=== PATIENT | female | born 1990 | race Caucasian/White ===

== ENCOUNTER 2024-12-11 17:07 | Emergency (ER) | payer OTHER ==
[2024-12-11 17:17] VITALS: RESP 18
--- NOTE | 2024-12-11 18:09 | ED ---
General Adult HPI - General Source: patient, RN notes reviewed Mode of arrival: ambulatory Limitations: no limitations <NarayanalizaslyPalmira - Last Filed: 12/11/24 18:08> <Nancy Sargent - Last Filed: 12/15/24 09:24> - General Chief complaint: Dizziness Stated complaint: Hypertension-10 weeks preg - History of Present Illness Initial comments: 34-year-old female presents to the emergency department for elevated blood pressure readings, lightheadedness. Patient states that symptoms started today. She notes that she is 10 weeks . She called her METAL WEIGHER because she had elevated blood pressures and was told to come to the emergency department. She denies any history of hypertension but does report history of with her prior . (Palmira Emmanuel) Patient is a previously health 34 y/o female, , Currently 10 weeks , presenting today for HTN. Patient states that she feels like her blood pressure has been fluctuating all day. Has noticed dizziness worsening throughout the day, especially prominent when she was up cleaning this afternoon. She laid down and took her blood pressure and noted her systolic BP to be in the 160s. She called her OB's office and the OB nurse directed her to come to the ED. Patient is not currently on antihypertensives. She states that she was never diagnosed with pre-eclampsia however was admitted to the hospital to deliver her last baby one month early due to high blood pressure. She describes her dizziness as lightheadedness. Symptoms have improved while awaiting assessment in the ED. Endorses mild right sided PEÑALOZA that was not sudden in onset nor described as the worst headache of her life. Denies sudden changes in vision, focal numbness or weakness, slurred speech or additional stroke like symptoms. Denies chest pain or shortness of breath or LE swelling. Denies abdominal pain, dysuria, hematuria, vaginal bleeding, discharge or fevers. States she has suffered from morning sickness throughout much of her so far. Had her 8 week intake appointment with her OB approx 1 week ago and was noted to have high BP at that time. Pt states at that time her OB's office planned to continue to monitor her BP. (Nancy Sargent) - Related Data Allergies Allergy/AdvReac Type Severity Reaction Status Date / Time No Known Allergies Allergy Verified 12/11/24 17:16 Review of Systems ROS Other: All systems not noted in ROS Statement are negative. <Palmira Emmanuel - Last Filed: 12/11/24 18:08> ROS Other: All systems not noted in ROS Statement are negative. <Nancy Sargent - Last Filed: 12/15/24 09:24> ROS Statement: Those systems with pertinent positive or pertinent negative responses have been documented in the HPI. Past Medical History Past Medical History: No Reported History History of Any Multi-Drug Resistant Organisms: None Reported Additional Past Surgical History / Comment(s): ovarian torsion Past Psychological History: No Psychological Hx Reported Smoking Status: Never smoker Past Alcohol Use History: None Reported Past Drug Use History: None Reported <Palmira Emmanuel - Last Filed: 12/11/24 18:08> General Exam Limitations: no limitations <Palmira Emmanuel - Last Filed: 12/11/24 18:08> <Nancy Sargent - Last Filed: 12/15/24 09:24> - General Exam Comments Initial Comments: Visual Physical Exam Vital signs reviewed General: Well-appearing, nontoxic, no acute distress. Head: Normocephalic, atraumatic Eyes: PERRLA, EOMI ENT: Airway patent Chest: Nonlabored breathing Skin: No visual rash, normal skin tone Neuro: Alert and oriented 3 Musculoskeletal: No gross abnormalities (Palmira Emmanuel) PE: CONSTITUTIONAL: No apparent distress, well appearing SKIN: Warm, dry, no jaundice, hives or petechiae EYES: Pupils are equally round, extraocular movements intact without nystagmus, clear conjunctiva, non-icteric sclera HENT: Normocephalic, atraumatic, moist mucus membranes, oropharynx clear without exudates, tympanic membrane's pearly balbuena NECK: , Full range of motion, normal appearance PULMONARY: Clear to auscultation without wheezes, rhonchi, or rales, normal excursion, no accessory muscle use and no stridor CARDIOVASCULAR: Regular rate, rhythm, normal S1 and S2. No appreciated murmurs, rubs or gallops. Strong radial pulses with intact distal perfusion. No lower extremity edema GASTROINTESTINAL: Soft, active bowel sounds throughout, non-tender, non- distended, no palpable masses, no rebound or guarding. No hepatosplenomegaly MUSCULOSKELETAL: Extremities have no gross deformity, no edema, redness, or swelling. No calf swelling NEUROLOGIC:_a/o x 3, GCS 15, normal mentation and speech. Moves all extremities x 4 without motor or sensory deficit, cranial nerves: II (visual davey without defects), III, IV and (extraocular movements are intact, pupils are equal with normal reaction to light), V (intact facial sensation and jaw opening), VII (no facial droop), IX and X (normal palate movement, midline uvula, normal voice), XI (symmetrical shoulder shrug and lateral head rotation against resistance), XII (midline tongue protrusion). Motor strength is 5/5 in all extremities. No abnormal movements. Normal muscle tone. Sensation to light touch is intact bilaterally. No cerebellar signs ([id number], [id number], and rapid alternating movements are normal) PSYCHIATRIC:_normal mood and affect, thought process is clear and linear (Nancy Sargent) Course Vital Signs 12/11/24 12/11/24 12/12/24 17:12 22:16 00:00 Temperature 97.8 F 97.9 F Pulse Rate 88 100 94 Respiratory 18 18 18 Rate Blood Pressure 186/100 139/86 136/90 O2 Sat by Pulse 100 98 98 Oximetry 12/12/24 01:46 Temperature Pulse Rate 84 Respiratory 18 Rate Blood Pressure 128/81 O2 Sat by Pulse 99 Oximetry EKG Findings - EKG Comments: EKG Findings:: Sinus rhythm, rate 85 bpm, AK interval 157 ms QT/QTc 363/4 5 ms, normal axis, no ST elevations or depressions, no ischemic changes, no arrhythmia <Nancy Sargent - Last Filed: 12/15/24 09:24> Medical Decision Making <Palmira Emmanuel - Last Filed: 12/11/24 18:08> - Lab Data Result diagrams: 12/11/24 19:28 12/11/24 19:28 <Nancy Sargent - Last Filed: 12/15/24 09:24> - Medical Decision Making Quick note performed and electronically signed by Palmira Emmanuel PA-C (Palmira Emmanuel) Was pt. sent in by a medical professional or institution ([facility] Dominguez, CRYPTOGRAPHER, urgent care, hospital, or [place] health care facility...) When possible be specific @ -Patient was sent in by her OB nurse Did you speak to anyone other than the patient for history (EMS, parent, family, police, friend...)? What history was obtained from this source @ -No Did you review nursing and triage notes (agree or disagree)? Why? @ -I reviewed nursing and triage notes-reviewed quick note, patient here for lightheadedness and high blood pressure Were old charts reviewed (outside hosp., previous admission, EMS record, old EKG, old radiological studies, urgent care reports/EKG's, [place] health care facility records)? Report findings @ -Medical records reviewed no prior records available for review Differential Diagnosis (chest pain, altered mental status, abdominal pain women, abdominal pain men, vaginal bleeding, weakness, fever, dyspnea, syncope, headache, dizziness, GI bleed, back pain, seizure, CVA, palpatations, mental health, musculoskeletal)? Differential Dizziness: Benign paroxysmal positional Vertigo, Meniere's disease, otitis media, acoustic neuroma, vertebrobasilar insufficiency, cerebellar stroke, encephalitis, hypovolemic, electrolyte abnormality, arrhythmia, gestational hypertension, anemia, this is not meant to be an all-inclusive list Based on history and physical exam, I do not feel further evaluation for cerebe llar stroke is warranted at this time, patient has no focal neurologic deficits, dizziness is described as more of a positional lightheadedness as opposed to vertiginous EKG interpreted by me (3pts min.). @ -As above X-rays interpreted by me (1pt min.). @ -None done CT interpreted by me (1pt min.). @ -None done U/S interpreted by me (1pt. min.). @ -None done What testing was considered but not performed or refused? (CT, X-rays, U/S, labs)? Why? @Due to patient's high blood pressure on arrival, chest x-ray was considered to evaluate for signs of cardiomegaly or pleural effusions however patient has reassuring cardiac exam, chest pain or shortness of breath, at this point I feel risk of radiation exposure to mother and fetus outweighs benefit What meds were considered but not given or refused? Why? @800 was considered however patient's blood pressure improved with treatment of her headache Did you discuss the management of the patient with other professionals (professionals i.e. , PA, CRYPTOGRAPHER, lab, RT, psych nurse, social worker masters, chain hoist operator, teacher, state wildlife officer, clinical case manager)? Give summary @Case was discussed with obstetrics and gynecology, Dr. Henderson, who kindly recommended patient maintain BP log and follow up in 1 week in her office Was smoking cessation discussed for >3mins.? @ -No Was critical care preformed (if so, how long)? @ -No Were there social determinants of health that impacted care today? How? (Homelessness, low income, unemployed, alcoholism, drug addiction, transportation, low edu. Level, literacy, decrease access to med. care, assisted, rehab)? @ -No Was there de-escalation of care discussed even if they declined (Discuss DNR or withdrawal of care, Hospice)? @ -No What co-morbidities impacted this encounter? (DM, HTN, Smoking, COPD, CAD, Cancer, CVA, ARF, Chemo, Hep., AIDS, mental health diagnosis, sleep apnea, morbid obesity)? @ -None Was patient admitted / discharged? Hospital course, mention meds given and route, prescriptions, significant lab abnormalities, going to OR and other pertinent info. @ Discharged- Patient is a 34 y/o female , presenting for lightheadedness and HTN. BP on arrival 186/100. Patient was initially seen and assessed by triage provider with prelimnary labs ordered by triage provider. On my assessment patient is resting comfortably in hallway bed. Obtained pt's permission to discuss case/ perform care in hallway. Pt has no focal deficits on exam. I personally rechecked pt's BP and on rechecked was 145/92 without intervention. Discussed with patient obtaining basic labs, administering tylenol, reglan, beneadryl for PEÑALOZA and dizziness and obtaining US. Pt agreeable with POC. On RN recheck approx 20 minutes after my assessment, BP decreased to 136/90. Labs and imaging reviewed. Grossly within normal limits. Abnormal values not concerning for acute pathology related to presenting complaint. ultrasound showsSingle live intrauterine fetus measuring 10 weeks gestation with heart rate 180 bpm. On reassessment patient endorses improvement of headache. Case was discussed with patient's die presser, Dr. Pickett , recs as above. Discussed with pt lab/US results, OB recs and how to monitor her blood pressure at home, include appropriate positioning, timing, and recording measurements once daily. Discussed with patient signs of hypertensive emergency and additional signs and symptoms to monitor for warranting return to the ED. All questions were answered and pt was comfortable with plan for dis charge at this point. In my medical judgment there is currently no evidence of an immediate life-t hreatening or surgical condition. Discharge is therefore indicated at this time. Discharge treatment instructions, follow up instructions, and appropriate emergency department return precautions were discussed with the patient and/or medical decision maker. Patient and/or medical decision maker expressed understanding of and agreed with the treatment plan, follow up instructions, and emergency department return precaution. All patient's and/or medical decision maker's questions were answered. The patient was advised that a small risk still exists that a serious condition could develop and was therefore instructed to return to the ED for any changes in symptoms, persistent symptoms, inability to obtain proper follow-up or for any further concerns. Patient received verbal and written instructions for this condition. Undiagnosed new problem with uncertain prognosis? @ -No Drug Therapy requiring intensive monitoring for toxicity (Heparin, Nitro, Insulin, Cardizem)? @ -No Were any procedures done? @ -No Diagnosis/symptom? @Hypertension, lightheadedness Acute, or Chronic, or Acute on Chronic? @Acute Uncomplicated (without systemic symptoms) or Complicated (systemic symptoms)? @Complicated Side effects of treatment? @ -No Exacerbation, Progression, or Severe Exacerbation? @ -No Poses a threat to life or bodily function? How? (Chest pain, USA, PA, pneumonia, PE, COPD, DKA, ARF, appy, cholecystitis, CVA, Diverticulitis, Homicidal, Suicidal, threat to staff... and all critical care pts) @ -No (Nancy Sargent) - Lab Data Lab Results 12/11/24 12/11/24 12/11/24 Range/Units 19:28 19:28 19:28 WBC 11.07 H (4.50-10.00) 10*3/uL RBC 4.36 (4.10-5.20) 10*6/uL Hgb 13.1 (12.0-15.0) g/dL Hct 37.8 (37.2-46.3) % MCV 86.7 (80.0-97.0) fL MCH 30.0 (27.0-32.0) pg MCHC 34.7 (32.0-37.0) g/dL Plt Count 199 (140-440) 10*3/uL MPV 11.2 (9.5-12.2) fL Immature Gran % (Auto) 0.5 % Neutrophils % 70.9 % Lymphocytes % 21.0 % Monocytes % 5.8 % Eosinophils % 1.3 % Basophils % 0.5 % Immature Gran # 0.05 H (0.00-0.04) 10*3/uL Neutrophils # 7.86 H (1.80-7.70) 10*3/uL Lymphocytes # 2.33 (0.90-5.00) 10*3/uL Monocytes # 0.64 (0.20-1.00) 10*3/uL Eosinophils # 0.14 (0.04-0.35) 10*3/uL Basophils # 0.05 (0.00-0.10) 10*3/uL PT (10.0-12.5) sec INR (<1.2) APTT (22.0-30.0) sec Sodium 134 L (137-145) mmol/L Potassium 4.1 (3.5-5.1) mmol/L Chloride 100 (98-107) mmol/L Carbon Dioxide 25 (22-30) mmol/L Anion Gap 9 mmol/L BUN 10 (7-17) mg/dL Creatinine 0.63 (0.52-1.04) mg/dL Est GFR (CKD-EPI)AfAm >90 (>60 ml/min/1.73 sqM) Est GFR (CKD-EPI)NonAf >90 (>60 ml/min/1.73 sqM) Glucose 90 (74-99) mg/dL Calcium 9.4 (8.4-10.2) mg/dL Magnesium 1.9 (1.6-2.3) mg/dL Total Bilirubin 0.4 (0.2-1.3) mg/dL AST 33 (14-36) U/L ALT 46 H (4-34) U/L Alkaline Phosphatase 60 (38-126) U/L Lactate Dehydrogenase 161 (120-246) U/L Total Protein 6.8 (6.3-8.2) g/dL Albumin 4.0 (3.5-5.0) g/dL Urine Color Colorless Urine Appearance Clear (Clear) Urine pH 6.5 (5.0-8.0) Ur Specific Stanford 1.011 (1.001-1.035) Urine Protein Negative (Negative) Urine Glucose (UA) Negative (Negative) Urine Ketones Negative (Negative) Urine Blood Negative (Negative) Urine Nitrite Negative (Negative) Urine Bilirubin Negative (Negative) Urine Urobilinogen <2.0 (<2.0) mg/dL Ur Leukocyte Esterase Negative (Negative) 12/11/24 12/11/24 Range/Units 19:28 22:04 WBC (4.50-10.00) 10*3/uL RBC (4.10-5.20) 10*6/uL Hgb (12.0-15.0) g/dL Hct (37.2-46.3) % MCV (80.0-97.0) fL MCH (27.0-32.0) pg MCHC (32.0-37.0) g/dL Plt Count (140-440) 10*3/uL MPV (9.5-12.2) fL Immature Gran % (Auto) % Neutrophils % % Lymphocytes % % Monocytes % % Eosinophils % % Basophils % % Immature Gran # (0.00-0.04) 10*3/uL Neutrophils # (1.80-7.70) 10*3/uL Lymphocytes # (0.90-5.00) 10*3/uL Monocytes # (0.20-1.00) 10*3/uL Eosinophils # (0.04-0.35) 10*3/uL Basophils # (0.00-0.10) 10*3/uL PT 10.1 (10.0-12.5) sec INR 0.9 (<1.2) APTT 22.3 (22.0-30.0) sec Sodium (137-145) mmol/L Potassium (3.5-5.1) mmol/L Chloride (98-107) mmol/L Carbon Dioxide (22-30) mmol/L Anion Gap mmol/L BUN (7-17) mg/dL Creatinine (0.52-1.04) mg/dL Est GFR (CKD-EPI)AfAm (>60 ml/min/1.73 sqM) Est GFR (CKD-EPI)NonAf (>60 ml/min/1.73 sqM) Glucose (74-99) mg/dL Calcium (8.4-10.2) mg/dL Magnesium (1.6-2.3) mg/dL Total Bilirubin (0.2-1.3) mg/dL AST (14-36) U/L ALT (4-34) U/L Alkaline Phosphatase 62 (38-126) U/L Lactate Dehydrogenase (120-246) U/L Total Protein (6.3-8.2) g/dL Albumin (3.5-5.0) g/dL Urine Color Urine Appearance (Clear) Urine pH (5.0-8.0) Ur Specific Stanford (1.001-1.035) Urine Protein (Negative) Urine Glucose (UA) (Negative) Urine Ketones (Negative) Urine Blood (Negative) Urine Nitrite (Negative) Urine Bilirubin (Negative) Urine Urobilinogen (<2.0) mg/dL Ur Leukocyte Esterase (Negative) Disposition <Palmira Emmanuel - Last Filed: 12/11/24 18:08> Is patient prescribed a controlled substance at d/c from ED?: No <Nancy Sargent - Last Filed: 12/15/24 09:24> Clinical Impression: Hypertension, Headache, Dizziness Disposition: HOME SELF-CARE Condition: Good Instructions (If sedation given, give patient instructions): Dizziness (ED), Hypertension During (ED) Additional Instructions: Every disease is a spectrum and a small chance still exists that a serious condition could develop, for this reason, please monitor yourself closely for new, changing or worsening symptoms, symptoms that persist beyond 48 hours, chest pain, shortness of breath/difficulty in breathing, swelling in your legs, abdominal pain, strokelike symptoms such as severe headache like the worst headache of your life, changes in vision, numbness or weakness of your extremities, facial droop or slurred speech fever, inability to tolerate/keep down fluids or your medications, inability to follow up with outpatient providers as instructed and should you experience these symptoms or should you have any further concerns for your wellbeing please return to the ED or call 911 immediately. Please check your blood pressure once daily at the same time every day and maintain a blood pressure log. Please call your machine grainer's office first thing tomorrow morning for a follow-up appointment in 1 week. Please take your blood pressure log with you to that appointment. PLEASE call your primary care physician as soon as possible to arrange / discuss plan for followup appointment. Appointment in the next 1-3 days is strongly encouraged if possible. PLEASE let us know here before you leave if there is anything further we can do to be of any assistance. Take care and feel Better! Referrals: None,Stated [Primary Care Provider] - 1-2 days
[2024-12-11 19:42] LABS: Basophils # (A) 0.05 10*3/uL (0.00-0.10); Basophils % (A) 0.5 %; Eosinophils # (A) 0.14 10*3/uL (0.04-0.35); Eosinophils % (A) 1.3 %; HCT 37.8 % (37.2-46.3); HGB 13.1 g/dL (12.0-15.0); Lymphocytes # (A) 2.33 10*3/uL (0.90-5.00); MCHC 34.7 g/dL (32.0-37.0); MCV 86.7 fL (80.0-97.0); Mean Platelet Volume 11.2 fL (9.5-12.2); Monocytes # (A) 0.64 10*3/uL (0.20-1.00); Monocytes % (A) 5.8 %; Neutrophils # (A) 7.86 10*3/uL (1.80-7.70); Neutrophils % (A) 70.9 %; Platelet Count 199 10*3/uL (140-440); RBC 4.36 10*6/uL (4.10-5.20); RDW 12.5 % (11.5-14.5); WBC 11.07 10*3/uL (4.50-10.00)
[2024-12-11 19:44] LABS: Appearance,Urine Clear (Clear); Bilirubin,Urine Negative (Negative); Blood,Urine Negative (Negative); Color,Urine Colorless; Glucose,Urine (UA) Negative (Negative); Ketones,Urine Negative (Negative); Leukocyte Esterase,Urine Negative (Negative); Nitrite,Urine Negative (Negative); PH, Urine 6.5 (5.0-8.0); Protein,Urine Negative (Negative); Specific Gravity,Urine 1.011 (1.001-1.035); Urobilinogen,Urine <2.0 mg/dL (<2.0)
[2024-12-11 20:00] LABS: ALT 46 U/L (4-34); AST 33 U/L (14-36); African American GFR (CKD) >90 (>60 ml/min/1.73 sqM); Alkaline Phosphatase 60 U/L (38-126); Anion Gap 9 mmol/L; Blood Urea Nitrogen 10 mg/dL (7-17); Calcium 9.4 mg/dL (8.4-10.2); Carbon Dioxide 25 mmol/L (22-30); Chloride 100 mmol/L (98-107); Glucose 90 mg/dL (74-99); LDH 161 U/L (120-246); Magnesium 1.9 mg/dL (1.6-2.3); Non-African American GFR(CKD) >90 (>60 ml/min/1.73 sqM); Potassium 4.1 mmol/L (3.5-5.1); Sodium 134 mmol/L (137-145); Total Bilirubin 0.4 mg/dL (0.2-1.3); Total Protein 6.8 g/dL (6.3-8.2)
[2024-12-11] MEDS: SODIUM CHLORIDE 0.9% 1,000 ML IV STA (22:04)
[2024-12-11] MEDS: diphenhydrAMINE 50 MG/ML 1 ML VIAL IVP STA (22:09)
[2024-12-11] MEDS: ACETAMINOPHEN TAB 500 MG TAB PO STA (22:09)
[2024-12-11] MEDS: METOCLOPRAMIDE 5 MG/ML 2 ML VIAL IVP STA (22:09)
[2024-12-11 22:37] LABS: INR 0.9 (<1.2); Partial Thromboplastin Time 22.3 sec (22.0-30.0); Prothrombin Time 10.1 sec (10.0-12.5)
[2024-12-12 00:20] VITALS: TEMP 97.9
--- NOTE | 2024-12-12 01:14 | US ---
EXAM: US First Trimester , Transabdominal CLINICAL HISTORY: US Reason: hypertension, 10 W TECHNIQUE: Real-time transabdominal obstetrical ultrasound of the maternal pelvis and a first trimester with image documentation. COMPARISON: No relevant prior studies available. FINDINGS: Gestation: There is a single intrauterine gestational sac. pole crown-rump length measures 3.15 cm consistent with 10 weeks 0 days gestation. heart rate 180 bpm. ABHISHEK: The estimated date of delivery is July 09, 2025. Placenta/amniotic fluid: Cannot be adequately evaluated due to the early gestational age. Uterus/cervix: The uterus measures 11.4 x 7.3 x 7.8 cm, 337 mL. No myometrial mass. Ovaries: The right ovary measures 1.8 x 2.1 x 1.5 cm, 2.9 mL. The left ovary measures 2.9 x 4.3 x 2.4 cm, 15.4 mL with a 2.1 cm cyst or follicle within it. No mass. Free fluid: No free fluid. IMPRESSION: 1. Single, live intrauterine fetus. pole crown-rump length measures 3.15 cm consistent with 10 weeks 0 days gestation. 2. The estimated date of delivery is July 09, 2025.
[2024-12-12 01:47] VITALS: BP 128/81; PULSE 84
== END 2024-12-12 01:47 | disposition home or self-care (01) ==
LOC: EC 17:07
DX: O10.911 Unspecified pre-existing hypertension complicating pregnancy, first trimester (principal); Z3A.10 10 weeks gestation of pregnancy
CPT/HCPCS: 36415; 93005; 80053; 83615; 83735; 84075; 85025; 85610; 85730; 81003; 76801; 99285; 96374; 96375; 96361; J1200; J2765